=== PATIENT | female | born 1985 | race Caucasian/White ===

== ENCOUNTER 2017-01-02 14:47 | Emergency (ER) | payer SELFPAY ==
[~2017-01-02 14:47] MED LIST: ADDERALL 10 MG10 M1 PO; ADVAIR 1001 DISK W/D IH; ADVIL200 M1 PO; ALBUTEROL SULF8.5 GM IH; ALBUTEROL2.5 MG/0.1 AERO NEB; AMOXICILLIN250 MG PO; ATIVAN1 M1 PO; AUGMENTIN 875-1 EAC2 PO; BACTRIM DS TAB1 EAC2 PO; CIPRO500 M1 PO; CLONAZEPAM0.5 M1 PO; CYCLOBENZAPRINE10 M1 PO; DELTASONE10 MG PO; DICLOFENAC POTA50 M1 PO; DILANTIN100 M1 PO; EXCEDRIN MIGRAI1 TAB PO; FLOMAX0.4 MG PO; IBUPROFEN600 MG PO; KEPPRA250 M1 PO; KEPPRA500 M3 PO; NAPROSYN500 M1 PO; NO HOME MEDS; NORCO 10/325 TA1 TAB PO; NORCO 5-325 TA1 EACH PO; NORCO 5/325 TAB1 TAB PO; NORCO 5/3251 TAB PO; NORFLEX100 MG PO; PEN-VEE K500 MG PO; PREDNISONE10 M1 PO; PREDNISONE10 MG PO; PROTONIX40 M2 PO; PROVENTIL0.83 MG/ML IH; SINEMET GT; SKELAXIN800 M3 PO; TESSALON PERLE100 MG PO; TRAZODONE HCL50 M1 PO; TRAZODONE50 MG PO; TUSSIONEX PENN473 ML PO; TYLENOL WITH C1 EACH PO; TYLENOL500 MG PO; ULTRAM50 M1 PO; VALIUM2 MG PO; VENTOLIN HFA18 G2 INH; ZITHROMAX250MG Z-PAK PO; ZOFRAN4 MG PO
[2017-01-02 16:53] LABS: BASO % 0.5 % (0-2); BASO ABSOLUTE COUNT 0.1 tho/cmm (0.0-0.2); EOS % 3.8 % (0-7); EOSINOPHIL ABSOLUTE COUNT 0.6 tho/cmm (0.0-0.7); HCT-HEMATOCRIT 42.2 % (34.0-49.0); HGB-HEMOGLOBIN 14.6 gm/dl (12.0-15.5); IMMATURE GRANULOCYTES ABSOLUTE 0.06 tho/cmm (0-0.03); IMMATURE GRANULOCYTES PERCENT 0.4 % (0-0.3); LYMPH % 21.5 % (20-45); LYMPH ABSOLUTE COUNT 3.3 tho/cmm (0.8-4.5); MCH (MEAN CORPUSCULAR HGB) 34.4 pg (28.0-32.0); MCHC MEAN CORPUSCULAR HGB CONC 34.6 % (32.0-36.0); MCV (MEAN CELL VOLUME) 99.3 fl (82.0-96.0); MEAN PLATELET VOLUME 9.6 cmc (9.4-12.4); MONO % 7.4 % (0-12); MONOCYTE ABSOLUTE COUNT 1.1 tho/cmm (0.0-1.2); NEUTROPHIL ABSOLUTE COUNT 10.2 tho/cmm (1.6-8.0); NEUTROPHIL-AUTOMATED 10.2 tho/cmm (1.6-8.0); NEUTROPHILS % 66.4 % (40-80); PLATELET COUNT 311 tho/cmm (150-450); RED BLOOD COUNT 4.25 mil/cmm (4.00-5.20); RED CELL DISTRIBUTION WIDTH 13.1 % (12.4-16.4); WHITE BLOOD COUNT 15.4 tho/cmm (4.0-10.0)
[2017-01-02 17:01] LABS: PREGNANCY-SERUM NEGATIVE (NEGATIVE)
[2017-01-02 17:04] LABS: ANION GAP 12 mmol/L (0-20); BLOOD UREA NITROGEN 7 mg/dl (6-24); CALCIUM 8.1 mg/dl (8.5-10.5); CARBON DIOXIDE-VENOUS 24 mmol/L (22-32); CHLORIDE 111 mmol/l (96-110); CREATININE 0.57 mg/dl (0.50-1.10); GLUCOSE 77 mg/dL (70-110); SODIUM 143 mmol/L (135-145); eGFR VALUE FOR BLACK >90 mL/Min
[2017-01-02] MEDS ORDERED: NORCO 5-325 TA1 EACH PO (18:54)
== END 2017-01-02 19:18 ==
LOC: EDMED 14:47
PROVIDERS: Emergency Medicine
DX: G40.909 Epilepsy, unspecified, not intractable, without status epilepticus (principal); S29.012A Strain of muscle and tendon of back wall of thorax, initial encounter; X58.XXXA Exposure to other specified factors, initial encounter
CPT/HCPCS: J1170; J7030